=== PATIENT | female | born 1990 | race Asian ===

== ENCOUNTER 2025-04-16 06:22 | Outpatient (REF) | payer OTHER, SELFPAY ==
--- NOTE | ~2025-04-16 | US_ITS ---
EXAMINATION: US PELVIS TRANSABDOMINAL AND TRANSVAGINAL HISTORY: IRREGULAR PERIODS, HAVING MENSES EVERY 2 WEEKS COMPARISON: There are no prior studies available for comparison. TECHNIQUE: Transabdominal and endovaginal real-time 2D booth-scale ultrasound was performed. FINDINGS: Uterus: The uterus is normal in size, measuring 7.7 x 3.9 x 5.1 cm. Myometrium has a normal echotexture. No fibroids are identified. Endometrium: The endometrial stripe measures 5-8 mm in thickness. Right ovary: The right ovary measures 2.7 x 1.7 x 1.7 cm. The right ovary is normal in size and echotexture. Left ovary: The left ovary measures 2.4 x 1.6 x 1.7 cm. The left ovary is normal in size and echotexture. There is a dominant 12 mm follicle. Pelvic fluid: none. US/US pelvic and transvaginal IMPRESSION: Unremarkable pelvic ultrasound. Electronically signed by: Kip Torrez MD 04/16/2025 11:12 AM EDT
--- OUTSIDE RECORDS SUMMARY | 2025-04-16 06:25 | XMS_ITS | Clinical Summary ---
Author Organization [facility] Address [address] [place] [phone] Phone Care Team Providers Care Lending Consultant Name Role Phone Unavailable Primary Care Provider Unavailabl e Social History Tobacco Use Types Packs/Day Years Used Date Smoking Tobacco: Never Assessed Education Answer Date Recorded Are you interested in more education? Not on tommy e 03/23/2025 Are you concerned about learning? Not on file 03/23/2025 No 03/23/2025 No 03/23/2025 Digital Access Answer Date Recorded No 03/23/2025 No 03/23/2025 Reliable internet access at home? Not on file 03/23/2025 Device with a working camera? Not on file Comments Unknown Sex and Gender Information Value Date Recorded Sex Assigned at Not on file Legal Sex Female 3:55 PM EDT Gender Identity Not on file Sexual Orientation Not on file Plan of Treatment Upcoming Encounters Date Type Department Care Team (Late st Contact Info) Description 05/29/2025 9:00 AM EST Office Visit [facility] [address] [place] [id number] Unknown, Unknown, Shahnaz Ya, [employer]ING P[employer] [address] [place] [id number] Medical Devices Not on file Additional Source Comments The information contained in this document represents components of the legal health record. It is not the complete legal health record.[facility]
== END 2025-04-16 06:23 | disposition home or self-care (01) ==
LOC: HO.UMASIMG 06:22
PROVIDERS: Visit Provider Nurse Practitioner Women's Health
DX: N92.6 Irregular menstruation, unspecified (principal)
CPT/HCPCS: 76830; 76856

== ENCOUNTER → 2025-04-16 10:16 | Outpatient (BNV) | payer OTHER, SELFPAY | PROVIDERS: Visit Provider Radiology Diagnostic Radiology | DX: N92.6 Irregular menstruation, unspecified (principal); N94.89 Other specified conditions associated with female genital organs and menstrual cycle | CPT/HCPCS: 76830; 76856 ==